=== PATIENT | female | born 1955 | race Caucasian/White ===

== ENCOUNTER 2021-11-08 11:30 | Inpatient (IN) | payer MEDICARE ==
[~2021-11-08] VITALS: Ht 177.8 cm; Wt 81.3 kg
[~2021-11-08 11:30] MED LIST: ASPIRIN81 M1 PO; CIPROFLOXACIN500 MG PO; COREG12.5 MG PO; CRESTOR20 MG PO; FLAGYL500 MG PO; LIPITOR20 MG PO; NORCO 325 MG-51 TAB PO; PLAVIX75 MG PO
[2021-11-08 12:14] VITALS: BP 112/58
[2021-11-08 13:26] LABS: BASO % 0.2 % (0.0-1.0); HEMATOCRIT 40.8 % (37.0-47.0); LYMPH # 0.9 10*3/uL (1.3-4.4); LYMPH % 21.9 % (27.0-41.0); MEAN CELL VOLUME 90.7 fl (81.0-99.0); MEAN CORPUSCULAR HGB CONC 33.1 g/dl (33.0-37.0); MEAN PLATELET VOLUME 9.2 fl (9.6-12.3); MONO # 0.3 10*3/uL (0.1-1.0); NEUT # 2.8 10*3/uL (2.3-7.9); NEUT % 69.7 % (47.0-73.0); PLATELET COUNT AUTOMATED 290 10*3/uL (130-400); RED CELL DISTRI WIDTH 13.9 % (0-14.5)
[2021-11-08 13:29] VITALS: BP 128/70
[2021-11-08 13:37] LABS: ACT PARTIAL THROMBO TIME 28.8 SECONDS (20.0-32.1)
[2021-11-08 13:43] LABS: ALKALINE PHOSPHATASE 146 U/L (45-117); BUN 16 mg/dl (7-24); CHLORIDE 107 mmol/L (98-107); CREATININE 0.68 mg/dL (0.55-1.02); LIPASE 120 U/L (73-393); POTASSIUM 3.6 mmol/L (3.5-5.1); SGOT/AST 86 IU/L (3-35); SGPT/ALT 66 U/L (12-78); SODIUM 136 mmol/L (136-145); TOTAL PROTEIN 6.5 gm/dL (6.4-8.2)
[2021-11-08 13:53] VITALS: BP 126/65
[2021-11-08 19:45] VITALS: BP 100/60
[2021-11-08 21:10] VITALS: BP 110/66
[2021-11-09] VITALS: BP 102/70
[2021-11-09 05:39] LABS: ALKALINE PHOSPHATASE 136 U/L (45-117); BUN 18 mg/dl (7-24); CHLORIDE 105 mmol/L (98-107); CHOLESTEROL 92 mg/dL (<200); CREATININE 0.63 mg/dL (0.55-1.02); LDL CHOLESTEROL 47 mg/dL (9-159); POTASSIUM 3.4 mmol/L (3.5-5.1); SGOT/AST 75 IU/L (3-35); SGPT/ALT 66 U/L (12-78); SODIUM 135 mmol/L (136-145); TOTAL PROTEIN 6.3 gm/dL (6.4-8.2); TRIGLYCERIDES 88 mg/dl (<150)
[2021-11-09 05:41] LABS: FREE T4 1.57 ng/dl (0.76-1.46)
[2021-11-09 05:46] LABS: THYROID STIM HORMONE (HS) 0.593 uIU/ml (0.358-4.75)
[2021-11-09 06:13] LABS: HEMATOCRIT 38.5 % (37.0-47.0); MEAN CELL VOLUME 90.4 fl (81.0-99.0); MEAN CORPUSCULAR HGB CONC 33.2 g/dl (33.0-37.0); MEAN PLATELET VOLUME 9.7 fl (9.6-12.3); PLATELET COUNT AUTOMATED 321 10*3/uL (130-400); RED BLOOD COUNT 4.26 10*6/uL (4.10-5.10); RED CELL DISTRI WIDTH 13.7 % (0-14.5)
[2021-11-09 06:59] LABS: BILIRUBIN Negative (Negative); BLOOD Negative (Negative); CLARITY Cloudy (Clear); COLOR Dark Yellow (Yellow); GLUCOSE Negative (Negative); KETONE 1+ (Negative); LEUKO ESTERASE 1+ (Negative); NITRITE Negative (Negative); SPECIFIC GRAVITY >= 1.030 (1.001-1.030)
[2021-11-09 07:15] LABS: BACTERIA TRACE; MUCOUS 1+; WBC 31-40 wbc/hpf (0-5)
[2021-11-09 07:17] LABS: WHITE BLOOD COUNT 1.5 10*3/uL (4.8-10.8)
[2021-11-09 07:18] LABS: MANUAL DIFF REFLEX YES
[2021-11-09 07:46] LABS: INTERNATIONAL NORM RATIO 1.1 (2.0-3.5)
[2021-11-09 07:57] LABS: PLATELET SUFFICIENCY NORMAL (NORMAL); TOTAL CELLS COUNTED 100 #CELLS
[2021-11-09 08:00] VITALS: BP 126/94
[2021-11-09 12:00] VITALS: BP 117/68
[2021-11-09 12:31] LABS: HEMATOCRIT 37.4 % (37.0-47.0); MEAN CELL VOLUME 89.3 fl (81.0-99.0); MEAN CORPUSCULAR HGB 30.3 pg (27.0-31.0); MEAN PLATELET VOLUME 9.5 fl (9.6-12.3); PLATELET COUNT AUTOMATED 329 10*3/uL (130-400); RED BLOOD COUNT 4.19 10*6/uL (4.10-5.10); RED CELL DISTRI WIDTH 13.7 % (0-14.5); WHITE BLOOD COUNT 3.3 10*3/uL (4.8-10.8)
[2021-11-09 12:36] LABS: MANUAL DIFF REFLEX YES
[2021-11-09 12:38] LABS: FERRITIN 287.5 ng/mL (10.0-291.0); VITAMIN D, 25-HYDROXY 84.1 ng/mL (30-100)
[2021-11-09 12:56] LABS: TOTAL CELLS COUNTED 100 #CELLS
[2021-11-09 12:57] LABS: PLATELET SUFFICIENCY NORMAL (NORMAL)
[2021-11-09 16:00] VITALS: BP 126/64
[2021-11-09 20:00] VITALS: BP 118/64
[2021-11-10] VITALS: BP 108/56
[2021-11-10 06:24] LABS: HEMATOCRIT 37.3 % (37.0-47.0); MEAN CELL VOLUME 90.8 fl (81.0-99.0); MEAN CORPUSCULAR HGB 30.2 pg (27.0-31.0); MEAN CORPUSCULAR HGB CONC 33.2 g/dl (33.0-37.0); MEAN PLATELET VOLUME 9.9 fl (9.6-12.3); PLATELET COUNT AUTOMATED 361 10*3/uL (130-400); RED BLOOD COUNT 4.11 10*6/uL (4.10-5.10); RED CELL DISTRI WIDTH 13.9 % (0-14.5); WHITE BLOOD COUNT 5.6 10*3/uL (4.8-10.8)
[2021-11-10 06:25] LABS: MANUAL DIFF REFLEX YES
[2021-11-10 06:37] LABS: BUN 18 mg/dl (7-24); CHLORIDE 111 mmol/L (98-107); CREATININE 0.52 mg/dL (0.55-1.02); POTASSIUM 3.4 mmol/L (3.5-5.1); SODIUM 141 mmol/L (136-145)
[2021-11-10 07:48] LABS: ATYPICAL LYMPHS 2 % (0-0); PLATELET SUFFICIENCY NORMAL (NORMAL); TOTAL CELLS COUNTED 100 #CELLS
[2021-11-10 08:30] VITALS: BP 96/78
[2021-11-10 12:00] VITALS: BP 103/55
[2021-11-10] MEDS ORDERED: OXYGEN NAS (13:34)
[2021-11-10] MEDS ORDERED: DECADRON6 M1 PO (13:34)
== END 2021-11-10 15:40 | disposition home health service (06) | DRG 177 ==
LOC: ED 11:30 → 4E 17:39 → EDHOLD 17:39 → 4E 20:05
PROVIDERS: Internal Medicine; Internal Medicine Hematology & Oncology; Physician Assistant; ADMIT Internal Medicine; ATTEND Internal Medicine
DX: U07.1 COVID-19 (principal); J12.82 Pneumonia due to coronavirus disease 2019; J96.01 Acute respiratory failure with hypoxia; I21.9 Acute myocardial infarction, unspecified; E43 Unspecified severe protein-calorie malnutrition; J44.0 Chronic obstructive pulmonary disease with (acute) lower respiratory infection; I25.10 Atherosclerotic heart disease of native coronary artery without angina pectoris; R73.9 Hyperglycemia, unspecified; E83.41 Hypermagnesemia; F17.219 Nicotine dependence, cigarettes, with unspecified nicotine-induced disorders; Z71.6 Tobacco abuse counseling; I48.91 Unspecified atrial fibrillation; Z90.49 Acquired absence of other specified parts of digestive tract

== ENCOUNTER 2023-01-13 02:17 | Inpatient (IN) | payer MEDICARE ==
[~2023-01-13] VITALS: Ht 177.8 cm; Wt 82.8 kg
[2023-01-13] VITALS (7 sets, daily range): BP systolic 106–135; BP diastolic 60–83
[~2023-01-13 02:17] MED LIST changes: +CIPRO500 MG PO; +DECADRON6 M1 PO; +OXYGEN NAS
[2023-01-13] MEDS ORDERED: ROSUVASTATIN CA20 MG PO (02:44)
[2023-01-13 03:06] LABS: BASO # 0.1 10*3/uL (0.0-0.1); BASO % 0.7 % (0.0-1.0); EOS # 0.5 10*3/uL (0.0-0.4); EOS % 4.8 % (1.0-4.0); HEMATOCRIT 44.5 % (37.0-47.0); LYMPH # 1.7 10*3/uL (1.3-4.4); LYMPH % 15.6 % (27.0-41.0); MEAN CELL VOLUME 94.9 fl (81.0-99.0); MEAN CORPUSCULAR HGB 30.1 pg (27.0-31.0); MEAN CORPUSCULAR HGB CONC 31.7 g/dl (33.0-37.0); MEAN PLATELET VOLUME 9.3 fl (9.6-12.3); MONO # 0.6 10*3/uL (0.1-1.0); MONO % 5.5 % (3.0-9.0); NEUT # 8.1 10*3/uL (2.3-7.9); NEUT % 73.2 % (47.0-73.0); PLATELET COUNT AUTOMATED 424 10*3/uL (130-400); RED BLOOD COUNT 4.69 10*6/uL (4.10-5.10); RED CELL DISTRI WIDTH 14.2 % (0-14.5); WHITE BLOOD COUNT 11.1 10*3/uL (4.8-10.8)
[2023-01-13 03:24] LABS: ALKALINE PHOSPHATASE 154 U/L (46-116); BUN 13 mg/dl (9-23); CHLORIDE 106 mmol/L (98-107); POTASSIUM 4.3 mmol/L (3.4-5.1); SGPT/ALT 16 U/L (10-49); TOTAL PROTEIN 7.3 gm/dL (6.0-8.0)
[2023-01-13] MEDS ORDERED: TRELEGY ELLIPT1 EACH INH (10:57)
[2023-01-13] MEDS ORDERED: PROVENTIL HFA6.7 GM INH (10:58)
[2023-01-13] MEDS ORDERED: ALENDRONATE SOD70 M1 PO (10:59)
[2023-01-13] MEDS ORDERED: VITAMIN D250 MC1 PO (11:04)
[2023-01-14] VITALS: BP 119/62
[2023-01-14 06:41] LABS: BASO % 0.1 % (0.0-1.0); HEMATOCRIT 38.6 % (37.0-47.0); LYMPH # 1.5 10*3/uL (1.3-4.4); LYMPH % 15.5 % (27.0-41.0); MEAN CELL VOLUME 93.7 fl (81.0-99.0); MEAN CORPUSCULAR HGB 29.9 pg (27.0-31.0); MEAN CORPUSCULAR HGB CONC 31.9 g/dl (33.0-37.0); MEAN PLATELET VOLUME 9.6 fl (9.6-12.3); MONO # 0.4 10*3/uL (0.1-1.0); NEUT # 7.6 10*3/uL (2.3-7.9); NEUT % 80.1 % (47.0-73.0); PLATELET COUNT AUTOMATED 384 10*3/uL (130-400); RED BLOOD COUNT 4.12 10*6/uL (4.10-5.10); RED CELL DISTRI WIDTH 13.8 % (0-14.5); WHITE BLOOD COUNT 9.5 10*3/uL (4.8-10.8)
[2023-01-14 07:04] LABS: ALKALINE PHOSPHATASE 120 U/L (46-116); BUN 13 mg/dl (9-23); CHLORIDE 105 mmol/L (98-107); POTASSIUM 4.5 mmol/L (3.4-5.1); SGPT/ALT 14 U/L (10-49); TOTAL PROTEIN 6.3 gm/dL (6.0-8.0)
[2023-01-14 08:00] VITALS: BP 133/70
[2023-01-14] MEDS ORDERED: LEVOFLOXACIN500 MG PO (11:28)
[2023-01-14] MEDS ORDERED: Ipratropium Brom3 ML NEB (11:28)
[2023-01-14] MEDS ORDERED: PREDNISONE10 MG PO (11:28)
== END 2023-01-14 13:45 | disposition home or self-care (01) | DRG 190 ==
LOC: ED 02:17 → EDHOLD 03:34 → 4E 03:34
PROVIDERS: Internal Medicine; ADMIT Emergency Medicine; ATTEND Emergency Medicine
DX: J43.9 Emphysema, unspecified (principal); J96.01 Acute respiratory failure with hypoxia; E44.0 Moderate protein-calorie malnutrition; M81.0 Age-related osteoporosis without current pathological fracture; I25.10 Atherosclerotic heart disease of native coronary artery without angina pectoris; I48.91 Unspecified atrial fibrillation; F17.219 Nicotine dependence, cigarettes, with unspecified nicotine-induced disorders; R74.8 Abnormal levels of other serum enzymes; R73.9 Hyperglycemia, unspecified; Z90.49 Acquired absence of other specified parts of digestive tract; Z90.710 Acquired absence of both cervix and uterus; Z83.6 Family history of other diseases of the respiratory system; I25.2 Old myocardial infarction; Z86.16 Personal history of COVID-19; Z87.81 Personal history of (healed) traumatic fracture; Z71.6 Tobacco abuse counseling; Z68.26 Body mass index [BMI] 26.0-26.9, adult; D72.829 Elevated white blood cell count, unspecified

== ENCOUNTER 2023-02-11 16:22 | Emergency (ER) | payer MEDICARE ==
[~2023-02-11] VITALS: Ht 177.8 cm; Wt 81.6 kg
[~2023-02-11 16:22] MED LIST changes: +ALENDRONATE SOD70 M1 PO; +Ipratropium Brom3 ML NEB; +LEVOFLOXACIN500 MG PO; +PREDNISONE10 MG PO; +PROVENTIL HFA6.7 GM INH; +ROSUVASTATIN CA20 MG PO; +TRELEGY ELLIPT1 EACH INH; +VITAMIN D250 MC1 PO
[2023-02-11 16:59] LABS: BASO % 0.3 % (0.0-1.0); EOS # 0.4 10*3/uL (0.0-0.4); EOS % 5.2 % (1.0-4.0); HEMATOCRIT 45.1 % (37.0-47.0); LYMPH # 1.9 10*3/uL (1.3-4.4); LYMPH % 25.5 % (27.0-41.0); MEAN CELL VOLUME 93.4 fl (81.0-99.0); MEAN CORPUSCULAR HGB CONC 32.2 g/dl (33.0-37.0); MEAN PLATELET VOLUME 9.5 fl (9.6-12.3); MONO # 0.5 10*3/uL (0.1-1.0); MONO % 6.1 % (3.0-9.0); NEUT # 4.6 10*3/uL (2.3-7.9); NEUT % 62.8 % (47.0-73.0); PLATELET COUNT AUTOMATED 288 10*3/uL (130-400); RED BLOOD COUNT 4.83 10*6/uL (4.10-5.10); RED CELL DISTRI WIDTH 14.5 % (0-14.5); WHITE BLOOD COUNT 7.4 10*3/uL (4.8-10.8)
[2023-02-11 17:28] LABS: ALKALINE PHOSPHATASE 118 U/L (46-116); BUN 7 mg/dl (9-23); CHLORIDE 105 mmol/L (98-107); SGPT/ALT 10 U/L (10-49); TOTAL PROTEIN 6.8 gm/dL (6.0-8.0)
[2023-02-11] MEDS ORDERED: PREDNISONE50 MG PO (17:51)
[2023-02-11] MEDS ORDERED: ZITHROMAX250 MG PO (17:51)
== END 2023-02-11 17:57 | disposition home or self-care (01) ==
LOC: ED 16:22
PROVIDERS: Internal Medicine
DX: J44.1 Chronic obstructive pulmonary disease with (acute) exacerbation (principal); I25.2 Old myocardial infarction; E78.00 Pure hypercholesterolemia, unspecified; Z90.49 Acquired absence of other specified parts of digestive tract; Z90.89 Acquired absence of other organs; Z90.710 Acquired absence of both cervix and uterus; Z98.890 Other specified postprocedural states; F17.200 Nicotine dependence, unspecified, uncomplicated

== ENCOUNTER → 2023-06-19 | Outpatient (CLI) | payer OTHER ==
[~2023-06-19] MED LIST changes: +PREDNISONE50 MG PO; +ZITHROMAX250 MG PO
== END | disposition home or self-care (01) ==
LOC: RESCLI 11:04
PROVIDERS: ATTEND Internal Medicine
DX: J44.9 Chronic obstructive pulmonary disease, unspecified (principal); I25.10 Atherosclerotic heart disease of native coronary artery without angina pectoris; E78.5 Hyperlipidemia, unspecified; M85.80 Other specified disorders of bone density and structure, unspecified site; Z98.890 Other specified postprocedural states; Z82.49 Family history of ischemic heart disease and other diseases of the circulatory system; Z79.899 Other long term (current) drug therapy